=== PATIENT | male | born 1995 | race Caucasian/White ===

== ENCOUNTER 2018-01-05 23:45 | Emergency (ER) | payer MEDICAID ==
[~2018-01-05] VITALS: Ht 165.1 cm; Wt 69.0 kg
[2018-01-06 03:39] VITALS: BP 127/65
== END 2018-01-06 03:40 | disposition home or self-care (01) ==
LOC: ER 23:45
DX: R42 Dizziness and giddiness (principal); F41.9 Anxiety disorder, unspecified
CPT/HCPCS: 93005; 99283